=== PATIENT | female | born 1985 | race Hispanic/Latino ===

== ENCOUNTER 2023-11-11 06:27 | Day surgery (SDC) | payer BC ==
[2023-11-10 14:08] LABS: BASOPHILS # (AUTO) 0.02 K/uL (0.00-0.20); BASOPHILS % (AUTO) 0.3 % (0.0-5.0); EOSINOPHILS # (AUTO) 0.04 K/uL (0.00-0.70); EOSINOPHILS % (AUTO) 0.6 % (0.0-8.0); HEMATOCRIT 41.9 % (36-48); IMMATURE GRANULOCYTE ABSOLUTE 0.02 K/uL (0-1); LYMPHOCYTES # (AUTO) 1.6 K/uL (1.0-4.8); LYMPHOCYTES % (AUTO) 24.6 % (21.0-51.0); MEAN CORPUSCULAR HEMOGLOBIN 32.5 pg (27.0-33.0); MEAN CORPUSCULAR HGB CONC 34.1 g/dL (32.0-36.0); MEAN CORPUSCULAR VOLUME 95.2 fL (79-99); MONOCYTES # (AUTO) 0.4 K/uL (0.1-1.0); MONOCYTES % (AUTO) 5.6 % (3.0-13.0); NEUTROPHILS # (AUTO) 4.6 K/uL (1.8-7.7); NEUTROPHILS % (AUTO) 68.6 % (40.0-77.0); PLATELET COUNT (AUTO) 191 K/uL (130-400); RED CELL DISTRIBUTION WIDTH 12.4 % (11.0-15.5); WHITE BLOOD COUNT (AUTO) 6.6 K/uL (4.8-10.8)
[2023-11-10 14:13] VITALS: BP 133/75; PULSE 68; RESP 18; TEMP 98.3
[~2023-11-11] VITALS: Ht 177.8 cm; Wt 78.7 kg
[~2023-11-11 06:27] MED LIST: MELA1TAB73 PO
[2023-11-11] MEDS ORDERED: ceFAZolin SODIUM 2 GM VIAL ONE (06:42)
[2023-11-11 06:50] VITALS: BP 121/80; PULSE 89; RESP 18; TEMP 98
[2023-11-11] MEDS: LACTATED RINGERS 1000ML 1,000 ML IV ONE (07:43)
[2023-11-11] MEDS ORDERED: LIDOCAINE PF 100MG/5ML (2%) SYRINGE 5ML ONE (07:50)
[2023-11-11] MEDS ORDERED: FENTanyl CITRate PF 50 MCG/1 ML 2ML VIAL ONE ×2 (07:51→08:22)
[2023-11-11] MEDS ORDERED: MIDAZOLAM HCL 1 MG/ML 2ML VIAL ONE (07:51)
[2023-11-11] MEDS ORDERED: proPOFol 10 MG/ML 20ML VIAL IV ONE (07:51)
[2023-11-11] MEDS ORDERED: ketOROlac 30MG VIAL (30MG/ML) ONE (08:21)
[2023-11-11] MEDS ORDERED: metoCLOPRAmide 10 MG/2 ML VIAL ONE (08:22)
[2023-11-11] MEDS ORDERED: ondanSETRON 4MG INJ ONE (08:22)
[2023-11-11] MEDS ORDERED: dexaMETHasone SOD PHOSPHATE 10MG/ML 1ML VIAL ONE (08:22)
[2023-11-11] MEDS ORDERED: dexaMETHasone SOD PHOSPHATE 4 MG/ML 1ML VIAL ONE (08:32)
[2023-11-11 09:28] VITALS: BP 114/70; PULSE 69; RESP 16; TEMP 97.2
[2023-11-11 09:57] VITALS: BP 116/68; PULSE 70; RESP 18; TEMP 98.4
== END 2023-11-11 10:04 | disposition home or self-care (01) ==
LOC: DAH 06:27
PROVIDERS: ATTEND Obstetrics & Gynecology
DX: O02.1 Missed abortion (principal); Q51.3 Bicornate uterus; Z98.890 Other specified postprocedural states; Z98.891 History of uterine scar from previous surgery
CPT/HCPCS: 84703; 85025; 86850; 86900; 86901; 36415; 59820; 88305; 76998; A6260; J1100 ×2; A4663; J7120 ×2; J3010; J2002; J2250; J2704; J2405; J1885; J2765; J2210; J0690; A4215; A4223; A4222; A4221; J3490